=== PATIENT | female | born 1965 | race Caucasian/White ===

== ENCOUNTER 2019-07-28 14:15 | Emergency (ER) | payer OTHER ==
[~2019-07-28] VITALS: Ht 167.6 cm; Wt 55.5 kg
--- NOTE | 2019-07-28 14:53 | NUR ---
PATIENT BIB BY FRIEND. DR. FOWLER IS PERFORMING BREAST EXAM WITH A FEMALE RN WITNESS.
[2019-07-28] MEDS ORDERED: HYDROcodone/APAP 5/325 TABLET ONE (14:57)
[2019-07-28] MEDS ORDERED: BENZONATATE 100 MG CAPSULE ONE (14:59)
[2019-07-28] MEDS ORDERED: HYDROcodone/APAP 5/325 TABLET PO ONE (15:00)
[2019-07-28] MEDS ORDERED: BENZONATATE 100 MG CAPSULE PO ONE (15:00)
--- NOTE | 2019-07-28 15:12 | NUR ---
PATIENT HAS GONE TO X RAY.
--- NOTE | 2019-07-28 15:53 | NUR ---
PATIENT REPORTS PAIN IMPROVEMENT. 12/13
[2019-07-28 16:25] VITALS: BP 113/75
== END 2019-07-28 16:29 | disposition home or self-care (01) ==
LOC: ED 16:23
DX: R07.89 Other chest pain (principal); J45.909 Unspecified asthma, uncomplicated; Z85.3 Personal history of malignant neoplasm of breast; F17.200 Nicotine dependence, unspecified, uncomplicated
CPT/HCPCS: 71046; 99283